=== PATIENT | female | born 1935 | race Caucasian/White ===

== ENCOUNTER 2019-05-20 15:58 | Inpatient (IN) | payer OTHER ==
[~2019-05-20] VITALS: Ht 149.9 cm; Wt 59.4 kg
[2019-05-20 16:02] VITALS: Ht 149.9 cm; Wt 59.4 kg
--- NOTE | 2019-05-20 16:16 | NUR ---
DR. BRAXTON AT BEDSIDE.
--- NOTE | 2019-05-20 16:24 | NUR ---
PT CAME TO THE ED TODAY WITH CO AN IRREGUALR HEARTBEAT. PT WAS SEEN AT DR SHEN OFFICE FOR A ROUTINE OFFICE VISIT WHERE AN EKG WAS DONE AND WAS TOLD THAT SHE HAS A FAST AND IRREGULAR HEART BEAT. PT WAS SENT TO ER AND HAD ANOTHER EKG SHOWN THAT SHOWS AFIB RVR. PT IS AWAKE AND ALERT. DENIES ANY CP BUT STATES HAVING A LITTLE BIT OF PALPITATIONS ON AND OFF. PT IS ABLE TO FOLLOW ALL COMMANDS AND ANSWER ALL QUESTIONS. EKG WAS DONE IN TRIAGE. PT IS HOOKED UP TO FULL MONITORS, SIDE RAILS UP, CALL LIGHT IN REACH, WILL CONTINUE TOMONITOR.
[2019-05-20 16:45] LABS: BASOPHIL % 0.4 % (0-2); PLATELET COUNT 222 x10^3mcL (130-400); RED CELL DISTRIBUTION WIDTH 13.9 % (11.5-14.5)
[2019-05-20 16:54] LABS: CALCIUM 8.5 mg/dL (8.5-10.1); CARBON DIOXIDE 25.5 mmol/L (21-32); CHLORIDE SERUM 105 mmol/L (98-107); CREATININE SERUM 0.6 mg/dL (0.6-1.0); GLUCOSE SERUM 98 mg/dL (74-106); POTASSIUM SERUM 3.9 mmol/L (3.5-5.1); SODIUM SERUM 141 mmol/L (136-145)
[2019-05-20 16:59] LABS: ALBUMIN 3.7 g/dL (3.4-5.0); ALKALINE PHOSPHATASE 90 U/L (46-116); ALT/SGPT 41 U/L (14-59); AST/SGOT 36 U/L (15-37); BILIRUBIN TOTAL 0.96 mg/dL (0.20-1.00); TOTAL PROTEIN, SERUM 7.4 g/dL (6.4-8.2)
--- NOTE | 2019-05-20 17:01 | NUR ---
PT MEDICATED PER MD ORDER. PT VERBALIZED UNDERSTANDING OF MEDICATIONS PRIOR TO ADMINISTRATION.
--- NOTE | 2019-05-20 17:04 | NUR ---
PT IS AWAKE, ALERT, SPEAKING IN FULL CLEAR SENTENCES. SITTING UP IN GURNEY, CALL LIGHT IN REACH. RESP E/U, NAD NOTED. SONS AT BEDSIDE.
[2019-05-20] MEDS ORDERED: ENALAPRIL MALEA20 MG PO (17:07)
[2019-05-20] MEDS ORDERED: ISOSORBIDE MONO60 MG PO (17:08)
[2019-05-20] MEDS ORDERED: ADVIL200 M1 PO (17:08)
[2019-05-20 17:09] LABS: T3 TOTAL 0.84 ng/mL
[2019-05-20 17:20] LABS: FREE T4 1.32 ng/dL (0.76-1.46); FREE THYROXINE INDEX 3.2 ug/dL (1.4-4.5); T4(THYROXINE) 8.2 ug/dL (4.7-13.3)
[2019-05-20 17:40] LABS: microscopic required? YES; urine erythrocyte NEGATIVE (NEGATIVE)
--- NOTE | 2019-05-20 18:42 | NUR ---
PT DENYING ANY PAIN AT THIS TIME. PT IS AWAKE, ALERT, CONVERSING WITH BOTH HER DAUGHTERS AT THE BEDSIDE. SPEAKING IN FULL CLEAR SENTENCES. CALL LIGHT IN REACH.
--- NOTE | 2019-05-20 18:51 | NUR ---
CHANGE IN PT'S HR, FROM 81 TO 120'S, DR. BRAXTON MADE AWARE.
--- NOTE | 2019-05-20 18:59 | NUR ---
PT IS AWAKE, SPEAKING IN FULL, CLEAR SENTENCES WITH DAUGHTERS AT BEDSIDE, LAYING IN GURNEY, CALL LIGHT IN REACH. RESP E/U, NAD NOTED.
--- NOTE | 2019-05-20 19:14 | NUR ---
REPORT GIVEN TO ANANDA MONK TO ASSUME CARE FOR PT.
--- NOTE | 2019-05-20 19:35 | NUR ---
REPORT GIVEN TO SADI MALAVE.
[2019-05-20 20:21] VITALS: BP 159/77
--- NOTE | 2019-05-20 20:35 | NUR ---
RECEIVED PT FROM ER, PT ADMIT FOR NEW ONSET A.FIB, PT IS A/O X2, FORGETFUL, LUNG SOUND CLEAR BILATERAL, NO COUGH, PO2 94% IN ROOM AIR BUT PT C/O MILD SOB PUT PT ON 2L/MIN O2 VIA NC. PT IS ON TELE 4, A.FIB, HR BETWEEN 88-99, C/O MILD CHEST PAIN 2/10, BOWEL SOUND PRESENT ALL 4 QUADRANTS, NO DISTENTION, NO TENDER. PEDAL PULSE PRESENT BOTH FEET, NO EDEMA, IV AT LEFT AC, AND RIGHT AC, NO LEAKING, NO INFILTRATION. ALL ADLS ASSIST, ALL NEED MET, CALL LIGHT IN REACH, WILL CONTINUE TO MONITOR.
--- NOTE | 2019-05-21 01:46 | NUR ---
PT. C/O INSOMNIA. PRN AMBIEN GIVEN ORDERED. WILL MONITOR,
--- NOTE | 2019-05-21 03:51 | NUR ---
PT. SLEEPING AT THIS TIME. DAUGHTER REMAINS AT BEDSIDE. CALL LIGHT WITHIN REACH.AFIB, RATE OF 82. WILL CONTINUE TO MONITOR.
[2019-05-21 05:10] VITALS: BP 148/86
--- NOTE | 2019-05-21 05:52 | NUR ---
PT. SLEEPING WELL, DAUGHTER REMAINS AT BEDSIDE. NO C/O CHESTPAIN THROUGHOUT THE NIGHT. REMAINS AFIB ON MONITOR. IVF INFUSING WELL, SITE INTACT. CALL LIGHT WITHIN REACH. WILL ENDORSE PT CARE TO INCOMING NURSE.
[2019-05-21 06:43] LABS: BASOPHIL % 0.3 % (0-2); PLATELET COUNT 212 x10^3mcL (130-400); RED CELL DISTRIBUTION WIDTH 13.8 % (11.5-14.5)
[2019-05-21 07:18] LABS: ALKALINE PHOSPHATASE 72 U/L (46-116); ALT/SGPT 37 U/L (14-59); AST/SGOT 33 U/L (15-37); BILIRUBIN TOTAL 1.3 mg/dL (0.20-1.00); CALCIUM 8.1 mg/dL (8.5-10.1); CARBON DIOXIDE 27.3 mmol/L (21-32); CHLORIDE SERUM 109 mmol/L (98-107); CREATININE SERUM 0.6 mg/dL (0.6-1.0); GLUCOSE SERUM 101 mg/dL (74-106); MAGNESIUM 1.7 mg/dL (1.8-2.4); POTASSIUM SERUM 4.7 mmol/L (3.5-5.1); SODIUM SERUM 144 mmol/L (136-145); TOTAL PROTEIN, SERUM 6.5 g/dL (6.4-8.2)
[2019-05-21 07:19] LABS: ALBUMIN 3.1 g/dL (3.4-5.0)
--- NOTE | 2019-05-21 07:31 | NUR ---
RECEIVED AWAKE, ALERT AND ORIENTED. [place]PAINISH SPEAKING ONLY BUT FAMILY AT BEDSIDE ASSISTING WITH TRANSLATION. NO C/O PAIN OR DISCOMFORT AT THIS TIME. IVF INFUSING WELL AND SITE CLEAR. CALL LIGHT WITHIN REACH. WILL CONTINUE WITH PLAN OF CARE.
--- NOTE | 2019-05-21 07:33 | NUR ---
RECEIVED ASLEEP BUT AROUSABLE. IN NO ACUTE RESP. DISTRESS. VS WNL. IVF INFUSING TO KVO AND SITE CLEAR. NO C/O PAIN AT THIS TIME. CALL LIGHT WITHIN REACH. WILL CONTINUE WITH PLAN OF CARE.
[2019-05-21 09:05] VITALS: BP 160/76
--- NOTE | 2019-05-21 11:06 | NUR ---
RESTING IN BED, NO ACUTE DISTRESS. HR IS 53BPM. PT ASYMPTOMATIC. FAMILY AT BEDSIDE. WILL CONTINUE TO MONITOR.
--- NOTE | 2019-05-21 12:35 | NUR ---
HL STILL 54-56BPM. PT ASLEEP. AFTERNOON CARDIAZEM HELD. WILL CONTINUE TO MONITOR.
[2019-05-21 13:16] VITALS: BP 116/67
[2019-05-21 17:14] VITALS: BP 147/80
--- NOTE | 2019-05-21 18:02 | NUR ---
HL TO [facility]CO.AC REMOVED BECAUSE PT REPORTED THAT IT IS UNCOMFORTABLE AND UNABLE TO USE BOTH HANDS. NEW IV INSERTED TO LT HAND AND INFUSING WELL.OLD SITES WITH NO REDNESS OR SWELLING.
--- NOTE | 2019-05-21 19:15 | NUR ---
PT REMAINS IN NO DISTRESS. VS WNL, AFIB ON THE TELE WITH HR 78. NO C/O CHEST DISCOMFORT AT THIS TIME. IVF INFUSING WELL AND SITE CLEAR. FAMILY AT BEDSIDE. CALL LIGHT WITHIN REACH. WILL BE ENDORSED TO INCOMING SHIFT.
--- NOTE | 2019-05-21 19:41 | NUR ---
PT. AWAKE, ALERT, ORIENTED TO SELF AND PLACE. PT. ASSISTED TO BATHROOM AND BACK TO BED, GAIT SLOW, BUT STEADY. BM X1. ABD. SOFT AND ROUND, BOWEL SOUNDS ACTIVE. DENIES ABD. PAIN, DENIES NAUSEA. PT.'S BREATHING SLIGHTLY LABORED AFTER WALKING TO THE BATHROOM, DENIES BEING SOB. PT. PLACED ON 1L/NC FOR RESP. SUPPORT. BREATH SOUNDS CLEAR THROUGHOUT LUNG LUKE, RESP. EVEN. BLL SLIGHTLY DIMINISHED. NO EDEMA NOTED TO EXTREMITIES. FAMILY AT BEDSIDE. CALL LIGHT WITHIN REACH.
[2019-05-21 20:40] VITALS: BP 129/66
--- NOTE | 2019-05-22 02:50 | NUR ---
DAUGHTER REMAINS AT BEDSIDE. AFIB ON MONITOR, CONTROLLED. RATE OF 87. NO C/O CHESTPAIN THUS FAR. NO RESP. DISTRESS. PT. USUALLY WITH 1L/NC, BUT CANNULA OFF AT THIS TIME. WILL MONITOR. CALL LIGHT REMAINS WITHIN REACH.
[2019-05-22 05:09] VITALS: BP 125/56
[2019-05-22 06:38] LABS: BASOPHIL % 0.4 % (0-2); PLATELET COUNT 198 x10^3mcL (130-400); RED CELL DISTRIBUTION WIDTH 13.9 % (11.5-14.5)
[2019-05-22 06:50] LABS: CALCIUM 8.1 mg/dL (8.5-10.1); CARBON DIOXIDE 26.7 mmol/L (21-32); CHLORIDE SERUM 107 mmol/L (98-107); CREATININE SERUM 0.7 mg/dL (0.6-1.0); GLUCOSE SERUM 125 mg/dL (74-106); MAGNESIUM 1.9 mg/dL (1.8-2.4); POTASSIUM SERUM 4.1 mmol/L (3.5-5.1); SODIUM SERUM 144 mmol/L (136-145)
--- NOTE | 2019-05-22 07:30 | NUR ---
RECEIVED PATIENT IN BED, FAMILY MEMBER AT BEDSIDE. PATIENT ALERT BUT FORGETFUL AT TIMES. [place]IN[place] SPEAKING. TELE 4 A-FIB. RESP EVEN AND UNLABORED, LUNGS CLEAR. IVF INFUSING WELL, SITE PATENT LEFT HAND. SKIN INTACT. GENERALIZED WEAKNESS, AMBULATES WITH WALKER. DENIES ANY PAIN AT THIS TIME. WILL CONTINUE TO MONITOR.
[2019-05-22 08:04] VITALS: BP 124/70
[2019-05-22 09:45] LABS: rbc morphology (normal/abnorm) NORMAL (NORMAL)
[2019-05-22 11:45] VITALS: BP 110/60
--- NOTE | 2019-05-22 13:12 | NUR ---
PATIENT SITTING UP IN BED EATING LUNCH TRAY. SON AT BEDISIDE. PATIENT ASSISTED UP TO C PRN. TOLERATED WELL. WILL CONTINUE TO MONITOR. IVF INFUSING WELL, SITE PATENT.
--- NOTE | 2019-05-22 14:35 | NUR ---
PATIENT REMAINS IN BED, AWAKE ALERT. FAMILY MEMBERS AT BEDSIDE. NO CHANGE IN CONDITION NOTED.
[2019-05-22] MEDS ORDERED: ELIQUIS2.5 MG PO (14:42)
[2019-05-22] MEDS ORDERED: METOPROLOL TART25 M1 PO (14:43)
[2019-05-22] MEDS ORDERED: DILTIAZEM30 M1 PO (14:43)
[2019-05-22 15:07] VITALS: BP 110/60
--- NOTE | 2019-05-22 15:38 | NUR ---
DR ASTUDILLO INTO SEE PATIENT AND DISCHARGE ORDERS RECEIVED. AWAITING SS TO ARRANGE FOR HOME HEALTH ORDERED. FAMILY MEMBERS AT BEDSIDE. WILL CONTINUE TO MONITOR.
--- NOTE | 2019-05-22 16:21 | NUR ---
PATIENT READY FOR D/C HOME. HL AND TELE DC'D PRESCRIPTIONS AND DISCHARGE INSTRUCTIONS GIVEN TO PATIENT'S SONS WHOM SPEAK MALAY. MEDICATION AND A-FIB EDUCATION GIVEN. SON'S NOTIFIED THAT HAS ARRANGED HOME HEALTH ORDERED AND THAT HOME HEALTH WILL CALL THEM. SONS VERBALIZED UNDERSTANDING. CONDITION APPEARS STABLE.
== END 2019-05-22 16:22 | disposition home or self-care (01) | DRG 201 ==
LOC: ED 15:58 → EDBEDREQ 19:03 → DU 19:03
PROVIDERS: Emergency Medicine; Internal Medicine Pulmonary Disease; ADMIT Internal Medicine Pulmonary Disease
DX: I48.91 Unspecified atrial fibrillation (principal); E86.0 Dehydration; I07.1 Rheumatic tricuspid insufficiency; I10 Essential (primary) hypertension; J98.11 Atelectasis; Z23 Encounter for immunization
CPT/HCPCS: 84439; 90732; 97116-GP; G0378; J3475; J3490; J7030; J7040; Q0092

== ENCOUNTER 2020-04-15 17:34 | Emergency (ER) | payer OTHER ==
[~2020-04-15] VITALS: Ht 152.4 cm; Wt 77.1 kg
[~2020-04-15 17:34] MED LIST: ADVIL200 M1 PO; DILTIAZEM30 M1 PO; ELIQUIS2.5 MG PO; ENALAPRIL MALEA20 MG PO; ISOSORBIDE MONO60 MG PO; METOPROLOL TART25 M1 PO
[2020-04-15 17:58] VITALS: Ht 152.4 cm; Wt 77.1 kg
[2020-04-15 18:47] LABS: BASOPHIL % 0.5 % (0-2); PLATELET COUNT 231 x10^3mcL (130-400); RED CELL DISTRIBUTION WIDTH 12.7 % (11.5-14.5)
[2020-04-15 18:54] LABS: CALCIUM 9.1 mg/dL (8.5-10.1); CARBON DIOXIDE 31.3 mmol/L (21-32); CHLORIDE SERUM 103 mmol/L (98-107); CREATININE SERUM 0.8 mg/dL (0.6-1.0); GLUCOSE SERUM 99 mg/dL (74-106); SODIUM SERUM 138 mmol/L (136-145)
[2020-04-15 18:58] LABS: ALBUMIN 3.6 g/dL (3.4-5.0); ALKALINE PHOSPHATASE 88 U/L (46-116); ALT/SGPT 37 U/L (14-59); AST/SGOT 33 U/L (15-37); BILIRUBIN TOTAL 0.5 mg/dL (0.20-1.00); TOTAL PROTEIN, SERUM 7.5 g/dL (6.4-8.2)
[2020-04-15 19:38] VITALS: BP 154/68
[2020-04-15 20:42] LABS: microscopic required? NO
[2020-04-15 20:48] LABS: UA SPECIFIC GRAVITY <=1.005 (1.005-1.035); urine erythrocyte NEGATIVE (NEGATIVE)
== END 2020-04-15 20:33 | disposition home or self-care (01) ==
LOC: ED 17:34
PROVIDERS: Emergency Medicine
DX: I48.20 Chronic atrial fibrillation, unspecified (principal); I10 Essential (primary) hypertension; Z98.890 Other specified postprocedural states
CPT/HCPCS: 83880; J2405; J7030; Q0092

== ENCOUNTER 2020-08-25 15:12 | Emergency (ER) | payer OTHER ==
[~2020-08-25] VITALS: Ht 152.4 cm; Wt 59.0 kg
[2020-08-25 15:14] VITALS: BP 145/67; Ht 152.4 cm; Wt 59.0 kg
== END 2020-08-25 15:30 | disposition left against medical advice (07) ==
LOC: ED 15:12
DX: Z53.21 Procedure and treatment not carried out due to patient leaving prior to being seen by health care provider (principal)